=== PATIENT | female | born 1995 | race African-American/Black ===

== ENCOUNTER 2017-04-20 01:31 | Emergency (ER) | payer OTHER ==
--- NOTE | 2017-04-20 08:19 | RAD ---
LEFT WRIST 3 VIEWS: INDICATION: Laceration, pain, injury. FINDINGS: Carpal alignment is maintained. No fracture or dislocation. IMPRESSION: No acute osseous abnormality of the left wrist. POS: [facility]
== END 2017-04-20 06:17 | disposition home or self-care (01) ==
LOC: ERS 01:31
DX: S61.512A Laceration without foreign body of left wrist, initial encounter (principal); W25.XXXA Contact with sharp glass, initial encounter

== ENCOUNTER 2017-12-24 18:32 | Inpatient (IN) | payer OTHER, SELFPAY ==
[~2017-12-24 18:32] MED LIST: ISOVUE-370 76%-LOCM 1 ML ONE
[2017-12-24 19:08] LABS: #Eosinphils 0.1 thou/uL (0.0-0.7); #Lymphocytes 1.2 thou/uL (1.20-3.40); #Monocytes 0.6 thou/uL (0.11-0.59); #Neutrophils 5.8 thou/uL (1.40-6.50); %Basophils 0.3 % (0.0-1.0); %Eosinophils 1.4 % (0.0-10.0); %Lymphocytes 15.4 % (28.0-48.0); %Monocytes 7.5 % (0.0-4.0); %Neutrophils 75.5 % (31.0-61.0); Hemoglobin 16.5 g/dL (12.0-16.0); Mean Corpuscular HGB CONC 34.1 g/dL (32.0-36.0); Mean Corpuscular Volume 88.1 fL (78.0-98.0); Mean Platelet Volume 7.1 fL (7.4-10.4); Platelet Count 314 thou/uL (130-400); RBC Distribution Width 11.1 % (11.5-14.5); Red Blood Cell (RBC) Count 5.48 mill/uL (4.00-5.20); White Blood Cell (WBC) Count 7.7 thou/uL (4.8-10.8)
[2017-12-24 19:28] LABS: ALT (SGPT) 19 U/L (8-55); AST (SGOT) 19 U/L (5-34); Albumin 4.6 g/dL (3.5-5.0); Alkaline Phosphatase 62 U/L (40-150); Anion Gap 13 mmol/L (10-20); BUN (Urea Nitrogen) 7 mg/dL (7.0-18.7); Bilirubin, Total 1.3 mg/dL (0.2-1.2); Calc. Creatinine Clearance 0 mL/min (70-130); Calcium 9.7 mg/dL (7.8-10.44); Carbon Dioxide 23 mmol/L (22-29); Chloride 106 mmol/L (98-107); Estimated GFR-MDRD Greater than 90; Globulin 3.3 g/dL (2.4-3.5); Glucose 98 mg/dL (70-105); Lipase 18 U/L (8-78); Potassium 3.8 mmol/L (3.5-5.1); Protein, Total 7.9 g/dL (6.0-8.3); Sodium 138 mmol/L (136-145)
[2017-12-24] MEDS ORDERED: Ondansetron HCl/PF 4 MG/2 ML Vial ONE (19:32)
[2017-12-24 20:07] LABS: Bilirubin Negative (Negative); Blood, Urine Moderate (Negative); Clarity CLEAR (Clear); Glucose, Urine (Dipstick) Negative (Negative); Leukocyte Small (Negative); Nitrite Negative (Negative); Protein, Urine (Dipstick) Negative (Neg-Trace); Specific Gravity, Urine 1.025 (1.002-1.036)
[2017-12-24 20:09] LABS: Bacteria/HPF Rare-Few HPF (None Seen); Hyaline Casts/LPF 0-3 HYALINE CAST LPF (0-3 Hyaline); Pathc Cast-AUWi Flag 0.87 (0-2.49); Pregnancy Test - Urine (BHCG) Negative (Negative); Pregu Control Background? CLEAR/WHITE (CLR/WHITE); Pregu Control Bar Appear? YES (CONTROL BAR); RBC/HPF 0-3 HPF (0-3); Specific Gravity 1.025 (1.002-1.036)
[2017-12-24] MEDS ORDERED: Piperacillin/Tazobactam 4.5 GM VIAL ONE (20:41)
[2017-12-24] MEDS ORDERED: Acetaminophen 500 MG TAB ONE (20:51)
--- NOTE | 2017-12-24 21:29 | ULT ---
RIGHT UPPER QUADRANT ABDOMINAL ULTRASOUND: 12/24/17 COMPARISON: None. HISTORY: Right upper quadrant abdominal pain with nausea and vomiting. The pain radiates to the left upper cesar drant. TECHNIQUE: Multiplanar quiñones scale and color doppler images were obtained in a right upper quadrant abdominal ult rasound. FINDINGS: The liver is normal in echogenicity without focal lesions or intrahepatic ductal dilatation. The gall bladder is normal without stones, sludge, gallbladder wall thickening or pericholecystic fluid. The common bile duct is normal measuring 4 mm. The visualized portions of the pancreas show no focal mass. The pancreatic duct is prominent measurin g 3 mm. There is prominence of the right renal pelvis without calyceal dilatation. This may represent extrarenal pelvis. The right kidney measures 12.5 cm in length. IMPRESSION: No significant right upper quadrant abnormality. POS: [facility]
--- NOTE | 2017-12-24 21:30 | RAD ---
SINGLE VIEW OF THE CHEST: 12/24/17 COMPARISON: None. HISTORY: Chest pain radiating to the chest that began this morning. FINDINGS: Single view of the chest shows a normal sized cardiomediastinal silhouette. There is no evidence of c onsolidation, mass, or pleural effusion. The bones are unremarkable. IMPRESSION: No evidence of acute cardiopulmonary disease. POS: [facility]
--- NOTE | 2017-12-24 22:06 | CT ---
CT OF THE ABDOMEN AND PELVIS WITH CONTRAST: 12/24/17 COMPARISON: None. HISTORY: Abdominal pain for three days worsening today. Chills and fever with sweats. TECHNIQUE: Multiple contiguous axial images were obtained in a CT of the abdomen and pelvis with contrast. Coron al reformats were performed. FINDINGS: There is a subcentimeter tiny hypodensity in the right lobe of the liver which is too small to defini tely characterize but could represent a cyst. The gallbladder, kidneys, right adrenal gland, spleen, and pancreas are unremarkable. There is a mass involving the left adrenal gland measuring 2.4 cm in s ize. This mass is predominantly hypodense but there are calcifications along the periphery of this le donell. The reproductive organs are unremarkable. The large and small bowel are unremarkable. The appen ave is normal. No abdominal or pelvic lymphadenopathy are seen. The osseous structures, visualized inferior thorax, and abdominal wall soft tissues are unremarkable. IMPRESSION: 1. No evidence of acute intra-abdominal/pelvic abnormality. 2. Left adrenal mass. This is nonspecific. Correlate with urinary catecholamines. An MRI of the abdomen per adrenal mass protocol may be necessary to better characterization of this mass. POS: [facility]
[2017-12-24] MEDS ORDERED: Ibuprofen 800 MG TAB ONE (23:06)
[2017-12-25] MEDS ORDERED: Ibuprofen 800 MG TAB ONE (00:33)
[2017-12-25] MEDS ORDERED: Acetaminophen 325 MG TAB PO PRN (00:48)
[2017-12-25] MEDS ORDERED: Ondansetron HCl/PF 4 MG/2 ML Vial IVP PRN (00:48)
[2017-12-25] MEDS ORDERED: Sodium Chloride 0.9% 1,000 ML IV SCH (01:00)
[2017-12-25 01:02] LABS: CKMB 0.5 ng/mL (0-6.6); Troponin I Less than 0.010 ng/mL (< 0.028)
[2017-12-25 03:12] VITALS: BMI 29.2
[2017-12-25 03:25] LABS: #Eosinphils 0.1 thou/uL (0.0-0.7); #Lymphocytes 1.4 thou/uL (1.20-3.40); #Monocytes 0.3 thou/uL (0.11-0.59); #Neutrophils 4.6 thou/uL (1.40-6.50); %Basophils 0.1 % (0.0-1.0); %Eosinophils 0.8 % (0.0-10.0); %Lymphocytes 22.2 % (28.0-48.0); %Monocytes 4.7 % (0.0-4.0); %Neutrophils 72.2 % (31.0-61.0); Hemoglobin 12.9 g/dL (12.0-16.0); Mean Corpuscular HGB CONC 34.7 g/dL (32.0-36.0); Mean Corpuscular Hemoglobin 30.9 pg (25.0-35.0); Mean Corpuscular Volume 88.9 fL (78.0-98.0); Platelet Count 254 thou/uL (130-400); RBC Distribution Width 11.2 % (11.5-14.5); Red Blood Cell (RBC) Count 4.19 mill/uL (4.00-5.20); White Blood Cell (WBC) Count 6.4 thou/uL (4.8-10.8)
[2017-12-25] MEDS: Piperacillin/Tazobactam 3.375 GM in Sodium Chloride 0.9% 100 ML IVPB SCH ×4 (03:29→20:39)
[2017-12-25 03:49] LABS: Troponin I Less than 0.010 ng/mL (< 0.028)
[2017-12-25 03:54] LABS: Anion Gap 13 mmol/L (10-20); BUN (Urea Nitrogen) 5 mg/dL (7.0-18.7); Calc. Creatinine Clearance 153 mL/min (70-130); Calcium 7.5 mg/dL (7.8-10.44); Carbon Dioxide 17 mmol/L (22-29); Chloride 114 mmol/L (98-107); Estimated GFR-MDRD Greater than 90; Glucose 99 mg/dL (70-105); Potassium 3.7 mmol/L (3.5-5.1); Sodium 140 mmol/L (136-145)
[2017-12-25 05:16] LABS: Amphetamine Not Detected (NotDetected); Barbiturates Screen Not Detected (NotDetected); Benzodiazepine Screen Not Detected (NotDetected); Cocaine Metabolite Screen Not Detected (NotDetected); Medtox Control Line Valid? VALID (VALID); Medtox Reader # READER 4; Methadone Not Detected (NotDetected); Methamphetamine Not Detected (NotDetected); Opiate Screen Detected (NotDetected); Oxycodone Screen Not Detected (NotDetected); Phencyclidine (PCP) Not Detected (NotDetected); THC/Cannabinoid Screen Not Detected (NotDetected); Tricyclic Screen Not Detected (NotDetected)
[2017-12-25] MEDS: Lactated Ringer's 1,000 ML IV SCH ×2 (06:01→20:47)
[2017-12-25 06:23] LABS: Hemoglobin 12.8 g/dL (12.0-16.0)
--- NOTE | 2017-12-25 06:52 | HP ---
TIME OF EVALUATION: 11:50 p.m. PRIMARY CARE PHYSICIAN: Rosa Mcneill MD CODE STATUS: FULL CODE. CHIEF COMPLAINT: Abdominal pain. HISTORY OF PRESENT ILLNESS: This is a 22-year-old female patient with past medical history of preecl ampsia during , no surgical history, came to the hospital having abdominal pain for the past 3 days, that got worse yesterday. The patient reported also having chills, fever, nausea, and vomit ing. The pain is mostly in the upper abdomen, no clear triggers, no alleviating factors, pain report ed as 8/10. REVIEW OF SYSTEMS: Constitutional: The patient reported having fever, chills, generalized weakness. Respiratory: No cough, sputum production, or shortness of breath. Cardiovascular: No chest pain or palpitation. Gastrointestinal: The patient had nausea, vomiting, abdominal pain. No diarrhea or reported constipation. Central Nervous Systems: No dizziness, headache, or feeling lightheaded. G enitourinary: No burning on urination. Extremities: No leg swelling. All other systems were revie wed and are negative except for the findings above. PAST MEDICAL HISTORY: Mentioned in the HPI. PAST SURGICAL HISTORY: Negative. PSYCHIATRIC HISTORY: No previous psychiatric history. SOCIAL HISTORY: No smoking history. No drug use. KNOWN ALLERGIES: LATEX. REPORTED MEDICATIONS: control charts. PHYSICAL EXAMINATION: VITAL SIGNS: On presentation, blood pressure 126/71 with heart rate 115, respiratory rate was 24, te mperature of 99.4, pain 8/10, oxygen saturation was 98 on room air. After hydration, the blood press ure has dropped occasionally with systolic in the 80s, however, has recovered after 3 liters of fluid s. The patient also presented fever with temperature 101.4. GENERAL APPEARANCE: Patient is alert, mild distress due to abdominal pain, oriented. HEENT: Eyes: Normal conjunctivae. Moist oral mucosa. Anicteric. NECK: No JVD. RESPIRATORY: Bilateral air entry. No rales, no wheezing. Symmetric expansion. CARDIOVASCULAR: Normal rate, regular rhythm. No murmurs, no gallop. EXTREMITIES: No edema. ABDOMEN: Soft. Normal bowel sounds. Abdomen is tender in the epigastric area and then diffuse radi ation. MUSCULOSKELETAL: Baseline range of motion and strength. No tenderness. SKIN: Warm and intact. No pallor, no rash, no redness. Peripheral pulses are present. Capillary r efill seems to be intact. NEUROLOGIC: Baseline sensorium. No evidence of any new focal weakness. Baseline speech. Cranial n erve seems to be intact. PSYCHIATRIC: The patient is in a good mood. No anxiety. Oriented, optimal judgment. IMAGING: EKG shows sinus tachycardia at a rate of 107, no evidence of any acute ischemic event, this was discussed with her family physician from ER. Chest CT, no pulmonary emboli. Abdominal ultrasou nd was negative. LABORATORY DATA: Reviewed. The patient had a white count of 7.7, hemoglobin 16.5, MCV 88, platelet count 314,000. D-dimer was negative. Sodium 138, potassium 3.8, chloride 106, carbon dioxide 33, an ion gap 13, BUN 7, creatinine 0.8, GFR 90, glucose 98. Lactic acid 0.9, calcium 9.7, total bilirubin 1.3, AST 19, ALT 19, alkaline phosphatase 62. Troponin and CK-MB were negative. Serum total protei n 7.9, albumin 4.6. UA was reviewed. The patient had 46 white count in urine. In repeat labs from this morning showed chloride is 114 with carbon dioxide 17, and normal anion gap. ASSESSMENT AND PLAN: The patient will be placed in the hospital following medical problems: 1. Abdominal pain, unclear etiology, workup has been negative so far. The patient reported the pain as severe, needing opiate medication for optimal control. At this point, the patient complica tion from treatment. 2. Hyperchloremic, anion gap metabolic acidosis. We will adjust fluids. We will monitor. Adjust t reatment as needed. 3. Hypotension, unclear etiology. The patient has received aggressive IV fluids, blood pressure has been recovering slowly. Patient is symptomatic when hypotensive. When comparing the hemoglobin on initial presentation over 16.5 there is in drop of 4 points, this could be due to possible init ial presentation with dehydration; however, given hypotension. We will trend hemoglobins just to veronika e sure the patient is not bleeding. 4. Deep venous thrombosis prophylaxis. 5. Systemic inflammatory response syndrome, possible underlying sepsis, no clear etiology only posit roosevelt test was mildly positive urine. The patient is covered with broad spectrum antibiotics. We will follow cultures. We will adjust treatment as needed. The patient had fever, tachycardia.
[2017-12-25 07:06] LABS: Troponin I Less than 0.010 ng/mL (< 0.028)
--- NOTE | 2017-12-25 07:58 | CT ---
PRELIMINARY REPORT/[facility]/EMERGENTY AFTER-HOURS PROCEDURE CT Angiography Chest With Intravenous Contrast EXAM DATE/TIME: Exam ordered 12/25/2017 12:56 AM CLINICAL HISTORY: 22 years old, female; Pain; Chest pain; Patient HX: Patient presents with abd pain radiating to the c hest starting this morning. Reports vomiting 18 g lac, 4 zofran. TECHNIQUE: Axial computed tomographic angiography images of the chest with intravenous contrast using pulmonary embolism protocol. MIP reconstructed images were created and reviewed. COMPARISON: No relevant prior studies available. FINDINGS: Pulmonary arteries: There is no evidence of peripheral filling defects within the pulmonary arterial circulation to suggest pulmonary embolism. Aorta: No acute findings. No thoracic aortic aneurysm. Lungs: Normal. No mass. No consolidation. Pleural space: Normal. No significant effusion. No pneumothorax. Heart: Normal. No cardiomegaly. No significant pericardial effusion. No evidence of RV dysfunction. Bones/joints: No acute fracture. No dislocation. Soft tissues: Normal. Lymph nodes: Normal. No enlarged lymph nodes. IMPRESSION: There is no CT evidence of acute pulmonary embolism. Thank you for allowing us to participate in the care of your patient. Dictated and Authenticated by: Guero Pratt MD 12/25/2017 1:46 AM Central Time ([place] & [place]) FINAL REPORT CT PULMONARY ANGIOGRAM WITH IV COTNRAST AND 3D POSTPROCESSING: I agree with the preliminary report given by Dr. Guero Pratt of [facility]. POS: [facility]
[2017-12-25] MEDS ORDERED: ISOVUE-370 76%-LOCM 1 ML ONE (08:04)
[2017-12-25] MEDS ORDERED: Famotidine/PF 20 mg/2ml Vial SLOW IVP SCH (13:30)
--- NOTE | 2017-12-25 20:06 | CON ---
DATE OF CONSULTATION: 12/25/2017 HISTORY OF PRESENT ILLNESS: Ms. Castellanos is a 22-year-old female. She presented to the emergency room with 3 days of diarrhea and abdominal pain. She had an extensive workup in the ER, which included abdomen and pelvis CT, which did not show any p athology that would explain her pain. She did have a density on her adrenal gland that measured 2.4 cm. She had abdominal ultrasound that did not show anything in her hepatobiliary tree or anything suggest roosevelt of cholecystitis. She had a chest x-ray that was unremarkable. For some reason, she had a CT pulmonary angiogram done, which did not show thromboembolic disease. She says she is feeling better and wants to eat. She had no similar illness in the past. She has no history of inflammatory bowel disease. There is no history of clotting disorders in her family. She has not been around any people with similar illness. ALLERGIES: She reports LATEX intolerance. MEDICATIONS: She is on oral contraceptives. FAMILY HISTORY: Negative for lung disease. SOCIAL HISTORY: She is a nonsmoker, nondrinker, nondrug user. REVIEW OF SYSTEMS: Otherwise negative. PHYSICAL EXAMINATION: VITAL SIGNS: She is afebrile, heart rate is 88, respiratory rate is 18, oximetry is 100% on room air , blood pressure 104/66. Intake and output actually negative 744. I talked to the emergency physici an last night. She reportedly received 2 liters of fluid in, but was not clear how much fluid out guevara d been obtained. HEAD AND NECK: Unremarkable. LUNGS: Completely clear. HEART: Regular rhythm. ABDOMEN: Soft and nontender. EXTREMITIES: No clubbing, cyanosis or edema. LABORATORY DATA: White count 6.4, hemoglobin 12.9, platelets 254,000. Sodium 140, potassium 3.7, chloride 114, bicarbonate 17, BUN 5, creatinine 0.7. IMPRESSION: Abdominal pain with diarrhea, but no significant abdominal findings suggestive of a surg ical abdomen. It is statistically most likely a viral illness. She is stable to move out of the Intermediate Care Unit. She has hyperchloremic acidosis, most likel y the result of volume resuscitation. I will follow from a distance once she transfers out of the Intermediate Care Unit. I did put in a c onsult for Gastroenterology, but I doubt any procedures will be indicated.
[2017-12-25] MEDS: Famotidine/PF 20 mg/2ml Vial SLOW IVP SCH (20:39)
--- NOTE | 2017-12-25 22:10 | PDOC.PN ---
- Subjective Encounter Start Date: 12/25/17 Encounter Start Time: 12:00 Patient seen and examined for Abd pain/N/V. Feeling better. No new complaints. No overnight events - Objective Resuscitation Status: Resuscitation Status FULL:Full Resuscitation MAR Reviewed: Yes Vital Signs & Weight: Vital Signs (12 hours) Temp Pulse Resp BP Pulse Ox 12/25/17 20:00 97.6 F 82 22 H 115/63 100 12/25/17 19:46 100 12/25/17 16:00 98.6 F 87 18 112/67 12/25/17 12:40 98.3 F 97 18 109/67 100 Weight Weight 176 lb I&O: 12/24/17 12/25/17 12/26/17 06:59 06:59 06:59 Intake Total 256 Output Total 1000 Balance -744 Result Diagrams: 12/26/17 03:35 12/26/17 03:35 Radiology Reviewed by me: Yes (CT abd - neg) Phys Exam - Physical Examination Constitutional: NAD Respiratory: no wheezing, no rhonchi Cardiovascular: RRR, no rub Gastrointestinal: soft, positive bowel sounds mild gen tend, No rebound/guarding Musculoskeletal: no edema Neurological: moves all 4 limbs Dx/Plan - Plan DVT proph w/SCDs IMPRESSION: 1. Sepsis/Abd pain with N/V - ?Acute Viral syndrome 2. Hypotension due to dehydration 3. Abn LFTs 4. Left adrenal mass on CT - PCP to follow 5. Hyperchloremic metabolic acidosis PLAN: Cont IVF Cont Atbx Await GI input Stool w/u AM labs Review of Systems - Review of Systems Respiratory: negative: Cough, Dry, Shortness of Breath, Hemoptysis, SOB with Excertion, Pleuritic Pain, Sputum, Wheezing Cardiovascular: negative: chest pain, palpitations, orthopnea, paroxysmal nocturnal dyspnea, edema, light headedness, other - Medications/Allergies Allergies/Adverse Reactions: Allergies Allergy/AdvReac Type Severity Reaction Status Date / Time latex Allergy Verified 06/17/16 10:06 Medications: Current Medications Acetaminophen (Tylenol) 650 mg PO Q4H PRN PRN Reason: Headache/Fever or Pain Famotidine (Pepcid) 20 mg SLOW IVP BID [facility] Last Admin: 12/25/17 20:39 Dose: 20 mg Piperacillin Sod/Tazobactam (Sod 3.375 gm/ Sodium Chloride) 100 mls @ 200 mls/ hr IVPB 0300,0900,1500,2100 [facility] Last Admin: 12/25/17 20:39 Dose: 100 mls Lactated Ringer's (Lactated Ringer's) 1,000 mls @ 100 mls/hr IV .Q10H [facility] Last Admin: 12/25/17 20:47 Dose: 1,000 mls Ondansetron HCl (Zofran) 4 mg IVP Q6H PRN PRN Reason: Nausea/Vomiting Sodium Chloride (Flush - Normal Saline) 10 ml IVF Q12HR [facility] Last Admin: 12/25/17 20:39 Dose: 10 ml Sodium Chloride (Flush - Normal Saline) 10 ml IVF PRN PRN PRN Reason: Saline Flush
[2017-12-26] MEDS: Piperacillin/Tazobactam 3.375 GM in Sodium Chloride 0.9% 100 ML IVPB SCH ×2 (02:11→09:18)
[2017-12-26] MEDS: Lactated Ringer's 1,000 ML IV SCH ×2 (02:12→13:49)
[2017-12-26 05:01] LABS: Hemoglobin 12.7 g/dL (12.0-16.0); Mean Corpuscular HGB CONC 34.1 g/dL (32.0-36.0); Mean Corpuscular Hemoglobin 30.1 pg (25.0-35.0); Mean Corpuscular Volume 88.4 fL (78.0-98.0); Mean Platelet Volume 7.5 fL (7.4-10.4); Platelet Count 239 thou/uL (130-400); RBC Distribution Width 11.1 % (11.5-14.5); Red Blood Cell (RBC) Count 4.22 mill/uL (4.00-5.20); White Blood Cell (WBC) Count 4.2 thou/uL (4.8-10.8)
[2017-12-26 05:02] LABS: Band 1 % (5-11); Eosinophils 5 % (0-10); Lymphocytes 65 % (28-48); MDiff Complete? YES; Monocytes 12 % (0-4); Neutrophil 15 % (31-61); Reactive Lymphocytes 2 % (0-10)
[2017-12-26 05:09] LABS: ALT (SGPT) 12 U/L (8-55); AST (SGOT) 14 U/L (5-34); Albumin 3.3 g/dL (3.5-5.0); Alkaline Phosphatase 42 U/L (40-150); Anion Gap 10 mmol/L (10-20); BUN (Urea Nitrogen) Less than 4 mg/dL (7.0-18.7); Bilirubin, Total 0.9 mg/dL (0.2-1.2); Calc. Creatinine Clearance 141 mL/min (70-130); Calcium 8.4 mg/dL (7.8-10.44); Carbon Dioxide 22 mmol/L (22-29); Chloride 111 mmol/L (98-107); Estimated GFR-MDRD Greater than 90; Globulin 2.2 g/dL (2.4-3.5); Glucose 85 mg/dL (70-105); Magnesium 1.6 mg/dL (1.7-2.2); Potassium 3.6 mmol/L (3.5-5.1); Protein, Total 5.5 g/dL (6.0-8.3); Sodium 139 mmol/L (136-145)
[2017-12-26] MEDS ORDERED: Magnesium Sulfate 2 GM in Sodium Chloride 0.9% 100 ML IVPB SCH (07:45)
[2017-12-26] MEDS ORDERED: Magnesium 2 GM/NS 0.9% 100 ML 2 GM in Premix Bag 1 BAG IVPB SCH (08:00)
[2017-12-26] MEDS: Famotidine/PF 20 mg/2ml Vial SLOW IVP SCH (09:17)
[2017-12-26 11:47] VITALS: BP 112/71; TEMP 98.3
--- NOTE | 2017-12-26 14:27 | DIS ---
DATE OF ADMISSION: 12/25/2017 DATE OF DISCHARGE: 12/26/2017 DISCHARGE DISPOSITION: Home. FOLLOWUP: 1. Follow up with primary care physician, Dr. Mcneill in 1 week. 2. Please follow up on the final blood cultures and stool cultures. The patient was seen and examined on the day of discharge, denies any new complaints. No chest pain, shortness of breath, palpitations, fever or chills reported. BRIEF HOSPITAL COURSE: The patient is a 22-year-old female who presented to the hospital with abdomi nal discomfort with nausea and vomiting. Please refer to the history and physical for further detail s. The patient was admitted to the intermediate care unit with a diagnosis of sepsis of unclear etiology . She showed good response with IV hydration. CT angiogram of the chest done in the emergency room was negative for acute findings. Right upper quadrant ultrasound was negative for acute findings. C ommon bile duct was measuring 4 mm. Gallbladder was normal without any stones, sludge or gallbladder wall thickening. CT scan of the abdomen and pelvis in the emergency room with contrast was negative for acute findings. There was left adrenal mass measuring 2.4 cm in size. The mass was predominant ly hypodense with some calcifications along the periphery of the lesion. 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 Workup so far has been negative. Urinalysis showed 10,00 0-25,000 mixed skin mykel. Please note that the patient did not have any urinary symptoms. She was placed on broad spectrum antibiotics that has been discontinued. Symptoms were probably secondary to acute viral illness. The patient's child also had similar symptoms. Nausea, vomiting and abdominal pain had completely resolved. She has been afebrile with vital signs of 98.3 temperature, pulse rat e of 97, blood pressure 112/71, respirations of 15 with O2 saturation 100% on room air. Her stool wo rkup was also negative. Stool lactoferrin was negative as well. The patient was advised to follow u p on the final blood cultures as well as stool cultures. She will also require outpatient followup o n the left adrenal mass. Primary care physician advised to follow. FINAL DIAGNOSES: 1. Sepsis with acute organ dysfunction secondary to acute viral gastroenteritis, improved. 2. Hypotension secondary to dehydration and sepsis, improved. 3. Abnormal liver function tests, resolved. 4. Left adrenal mass on the CT. Primary care physician advised to follow. 5. Hyperchloremic metabolic acidosis, probably secondary to volume hydration. Plan of care was discussed with the patient in detail. She stated understanding.
--- NOTE | 2017-12-26 15:45 | PRG ---
DATE OF SERVICE: 12/26/2017 SUBJECTIVE: Ms. Castellanos was evaluated today. She denies having any more abdominal discomfort. S he says her diarrhea has almost completely resolved. She is receiving IV magnesium infusion, but it was burning arm, so recommended this be discontinued. With resumption of a regular diet and magnesiu m level, should return to normal. She can order picker/assembler a p.o. magnesium supplement. I have explained thi s to the mother. She can take this 4-5 days twice a day. OBJECTIVE: LUNGS: Clear. HEART: Regular rhythm. ABDOMEN: Soft and nontender. She appears to be stable for discharge. We will sign off.
--- NOTE | 2017-12-26 17:22 | CON ---
DATE OF CONSULTATION: 12/25/2017 REFERRING PHYSICIAN: Dr. Marian Freire. REASON FOR CONSULTATION: Abdominal pain, nausea, and also history of fever and chills. HISTORY OF PRESENT ILLNESS: Ms. Roxanne Castellanos is a very pleasant 22-year-old -[place] female hospitalized with abdominal pain and nausea and also vomiting. She also has history of some fever and chills a couple of days ago. The patient used to have bowel movement at least 3-4 kerline es a day, however, over the last couple of days, she is not able to have a bowel movement. However, today she had 2 liquid stools. She is on full liquid diet today. However, she says she appears very comfortable and her abdominal pain is actually fading away. The patient has had no previous GI prob lems. The patient does take ibuprofen off and on for some muscle cramping. The patient had abdomina l pain approximately 3 days ago. The pain was cramping in nature and was over the epigastric area go ing to the left upper quadrant. She has no right upper quadrant abdominal pain. She had nausea and vomiting one time and she also felt chilly and had some cold . The patient has no history of d ysuria, hematuria or frequency of urination. There is no abdominal pain. No heartburn or indigestio n. Since admission, the patient had extensive workup done. CT angiogram is negative. She had an ab dominal CAT scan, which revealed abdominal sonogram is negative. Though she complained of abd ominal pain she has no leukocytosis. WBC count is normal. The patient had no similar episode s in the past. She has no other relevant history. ALLERGIES: Allergic to LATEX. No drug allergies. SOCIAL HISTORY: The patient does not smoke or drink alcohol. MEDICAL ILLNESSES: History of preeclampsia with 16 months ago. After delivering the baby, her blood pressure had been normalized. She has no diabetes, no asthma, no other medical problems. SURGERIES: None. NEUROPSYCHIATRIC HISTORY: No history of depression or anxiety. REVIEW OF SYSTEMS: Unremarkable except for the above-mentioned symptoms. MEDICATIONS: None. MENSTRUAL HISTORY: No periods as she is on Depo shot. FAMILY HISTORY: Father of unknown cause. Mother is alive and healthy. Maternal grandmother guevara s breast cancer. PHYSICAL EXAMINATION: GENERAL: The patient appears very comfortable, in no acute distress. She is awake, alert, oriented to time, place and person. VITAL SIGNS: Afebrile, pulse is 88, blood pressure 99/50. HEENT: Conjunctivae clear. NECK: Supple. No adenitis or thyromegaly noted. CARDIOVASCULAR SYSTEM: First and second heart sounds normal. LUNGS: Clear to auscultation. ABDOMEN: Abdomen is soft. Abdomen is nondistended. She is tender over the epigastric area going to the left upper quadrant. She is nontender over the right upper quadrant. There is no rebound or gu arding. No organomegaly or masses. Bowel sounds normal. EXTREMITIES: Reveal no edema. LABORATORY DATA: From today, WBC 6400, hemoglobin 12.9, hematocrit 37.2, platelet count 254,000, caity ymorphs 72, lymphocytes 22, monocytes 4. Serum chemistries: Sodium 140, potassium 3.7, chloride 114 , bicarbonate 17, BUN is 5, creatinine 0.74, calcium 7.5. Serum cortisol level of 4.10, TSH 0.3951. An abdominal sonogram shows no gallstones. An abdominal CAT scan shows what appears to be adrenal a denoma. CLINICAL IMPRESSION: A 22-year-old -[place] female with abdominal pain, nausea, and history of . The history is suggestive most likely infectious pathology. Her nausea and vomiting, reso lved and she is having two stools today. Her abdominal pain is also getting better. RECOMMENDATIONS: 1. Diet as tolerated. 2. If her abdominal pain does not come back, no need for any workup. However, abdominal pain recurs , we will consider EGD.
== END 2017-12-26 13:50 | disposition home or self-care (01) | DRG 872 ==
LOC: ERS 18:32 → IMCU/EMU 12-25 01:32
PROVIDERS: ADMIT Hospitalist; ATTEND Hospitalist
DX: A41.89 Other specified sepsis (principal); E87.2 Acidosis; Z91.040 Latex allergy status; I95.9 Hypotension, unspecified; A08.4 Viral intestinal infection, unspecified; E86.0 Dehydration
CPT/HCPCS: 36415; 71045; 71275; 74177; 76705; 80048; 80053; 80306; 81003; 81015; 81025; 82533; 82553; 83605; 83630; 83690; 83735; 84443; 84484; 85025; 85379; 87040; 87045; 87046; 87086; 87449; 87899; 93005; 94760; 96361; 96365; 96367; 96374; 96375; A4216; J2270; J2405; J2543; J3370; J3475; J7050; S0028

== ENCOUNTER 2018-05-02 17:50 | Emergency (ER) | payer SELFPAY ==
[2018-05-02] MEDS ORDERED: Ibuprofen 200 MG TAB ONE (19:08)
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
--- NOTE | 2018-05-02 19:31 | RAD ---
LEFT KNEE RADIOGRAPHS FOUR VIEWS 05/02/18 PROVIDED CLINICAL HISTORY: Knee pain status post injury. FINDINGS: No evidence for fracture or other acute osseous abnormality. If there is persistent clinical concern, conservative management and followup imaging are advised. IMPRESSION: As above. POS: [facility]
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
--- NOTE | 2018-05-02 20:43 | RAD ---
TWO VIEWS RIGHT TIBIA AND FIBULA 05/02/18 HISTORY: Pain in mid shaft right tibia and fibula. FINDINGS: No fracture or dislocation is seen involving the right tibia or fibula. No other findings. IMPRESSION: No acute osseous abnormality. POS: [facility]
== END 2018-05-02 20:36 | disposition home or self-care (01) ==
LOC: ERS 17:50
DX: M25.561 Pain in right knee (principal); M25.562 Pain in left knee; M79.645 Pain in left finger(s); M79.604 Pain in right leg; V43.52XA Car driver injured in collision with other type car in traffic accident, initial encounter

== ENCOUNTER 2018-05-04 09:57 | Emergency (ER) | payer SELFPAY ==
--- NOTE | 2018-05-04 12:04 | ULT ---
RIGHT LOWER EXTREMITY VENOUS DUPLEX EXAM: Date: 05/04/18 HISTORY: Right lower leg pain and swelling. FINDINGS: Real-time color Doppler of right lower extremity was performed from groin to calf. This includes eval uation of the common femoral, superficial and profunda femoral, saphenous, popliteal, and posterior t ibial veins. This shows patent deep venous system. There is normal compressibility and augmentation. There is no evidence of deep venous thrombosis. IMPRESSION: No evidence of deep venous thrombosis of the right lower extremity. POS: [facility]
== END 2018-05-04 12:25 | disposition home or self-care (01) ==
LOC: ERS 09:57
DX: S80.11XA Contusion of right lower leg, initial encounter (principal); W22.10XA Striking against or struck by unspecified automobile airbag, initial encounter